=== PATIENT | male | born 1965 | race Caucasian/White ===

== ENCOUNTER 2024-02-09 12:40 | Inpatient (IN) ==
[2024-02-09 13:12] LABS: Hematocrit (blood only) 46.7 % (42.0-52.0); Hemoglobin 15.7 g/dl (14.0-18.0); Mean Corpuscular Hemoglobin 28.9 pg (25.0-34.0); Mean Corpuscular Hgb Conc 33.6 g/dL (32.0-36.0); Mean Corpuscular Volume 85.8 fL (80.0-100.0); Mean Platelet Volume 10.7 fL (9.4-12.4); Platelet Count 206 K/uL (130-400); RDW Standard Deviation 39.8 fL (36.4-46.3); Red Blood Count 5.44 M/uL (4.70-6.10); White Blood Count 14.26 K/ul (4.8-10.8)
[2024-02-09 13:37] LABS: Albumin Globulin Ratio 1.6 (0.9-2); BUN Creatinine Ratio 15.2 (10-20); Bilirubin,Total 0.6 mg/dl (0.2-1.0); Calcium 9.7 mg/dl (8.6-10.3); Creatinine Clr Calc Pharmacy 90.7 ml/min; Est GFR (African American) 105.9 ml/min; Est GFR (Non-African American) 91.4 ml/min; Globulin 3.2 gm/dl (2.5-4.0); Potassium 3.8 mmol/L (3.5-5.1); Total Protein 8.2 gm/dl (6.0-8.3)
[2024-02-09] MEDS: OPTIRAY 320 100ml IV ONE (13:47)
[2024-02-09 13:48] LABS: Basophils # (auto) 0.03 K/uL (0.00-0.20); Basophils % (auto) 0.2 %; Eosinophils # (auto) 0.01 K/uL (0.00-0.50); Eosinophils % (auto) 0.1 %; Immature Granulocytes # (auto) 0.06 K/uL (0.01-0.20); Immature Granulocytes % (auto) 0.4 %; Lymphocytes # (auto) 0.63 K/uL (1.20-3.40); Lymphocytes % (auto) 4.4 %; Monocytes # (auto) 0.59 K/uL (0.11-0.59); Monocytes % (auto) 4.1 %; Neutrophils # (auto) 12.94 K/uL (1.40-6.50); Neutrophils % (auto) 90.8 %
--- NOTE | 2024-02-09 14:35 | CT Scan Report ---
ABDOMEN AND PELVIS CT WITH IV CONTRAST CT DOSE: 1421.24 mGy.cm HISTORY: Lower abd pain; vomiting TECHNIQUE: Multiaxial CT images of the abdomen and pelvis were performed following the use of intrave nous contrast. A dose lowering technique was utilized adhering to the principles of ALARA. COMPARISON STUDY: None. FINDINGS: The lung bases are clear. No pneumoperitoneum. No pneumatosis. No acute fractures identifie d. There is a 1.9 cm cyst within the left hepatic lobe. A few additional subcentimeter hypodense lesi ons are technically too small to characterize but favor cysts. The main portal vein is patent. The ga llbladder, pancreas, spleen, and adrenal glands are unremarkable. The kidneys enhance normally. Bilat eral peripelvic renal cysts are noted. No hydronephrosis. Fat stranding within the central mesentery suggestive of a mild mesenteric panniculitis. This is of doubtful clinical significance. No retroperi toneal lymphadenopathy. Normal caliber abdominal aorta. No pelvic lymphadenopathy or pelvic free flui d. Normal bladder. Fluid-filled nondistended colon. No evidence for a bowel obstruction. Distended an d fluid-filled appendix measuring up to 12 mm with mild periappendiceal fat stranding. This is consis tent with acute appendicitis. No perforation or abscess identified at this time. Mild thickening with in the adjacent small bowel is likely reactive. IMPRESSION: 1. Above findings consistent with acute appendicitis. No perforation or abscess. Surgical consultatio n recommended. 2. Fluid-filled nondilated colon. This suggests a diarrheal illness. ACT 112: Negative or not required by law. Electronically signed by: Tay Rojas M.D. 02/09/2024 2:32 PM
[2024-02-09] MEDS: PIPERACILLIN/TAZOBACTAM 4.5 GM/100 ML BAG IV ONE (14:52)
--- NOTE | 2024-02-09 14:58 | Emergency Department Note ---
Impression & Plan Acute appendicitis ED Provider Note NAME: MARIANO DIAZ AGE: 58 SEX: M : 1965 ARRIVES VIA: Walk-In INFORMANT: Patient, ED PROVIDER(S): Venkat Tian MD CHIEF COMPLAINT: Abdominal pain HPI: This is a 58-year-old male present for abdominal pain. Patient notes that over the weekend he was drinking heavy with the boys. He notes that he drank likely half a bottle of liquor. He then began having abdominal pain the day following. He then ate 2 big bowls of chili which worsening pain. His pain is more epigastric. He also notes right lower quadrant pain as well. He notes that he has tried Gas-X, Pepcid and Mylanta for symptoms without relief. He has no continued symptoms with dry heaving this morning. No previous history of abdominal surgeries. ROS: See above HPI for pertinent positives & negatives. A total of 10 systems reviewed and were otherwise negative. PAST MEDICAL HISTORY: See Below PAST SURGICAL HISTORY: See Below FAMILY HISTORY: See Below SOCIAL HISTORY: See Below HOME MEDICATIONS: See Below ALLERGIES: See Below VITALS: See Below PHYSICAL EXAMINATION: General: resting comfortably in no acute distress Head: Normocephalic and atraumatic Eyes: Normal inspection, extraocular muscles intact Ear, nose, throat: Normal external exam Neck: Normal range of motion Respiratory: lungs clear to auscultation bilaterally Cardiovascular: Regular rate/rhythm, no murmur GI: Right lower quadrant tenderness to palpation Extremities: nontender, moves all extremities Neuro: The patient awake and alert, appropriately conversive, no focal deficits, symmetric faces Skin: Warm, dry, and intact MEDICAL DECISION MAKING: This is a 58-year-old male presented for abdominal pain. With patient history of drinking and chili, consider gastritis, peptic ulcer disease, pancreatitis. Also consider diverticulitis versus appendicitis. -Bloodwork is reviewed showing leukocytosis, 14 no anemia, electrolyte or creatinine abnormality -CT imaging does confirm appendicitis in the right lower quadrant. In addition who shows few diarrheal illness. -Will give IV antibiotics, Zosyn for this appendicitis -Discussed with SRIKANTH Chaudhry for surgery who will see the patient in consultation. -Patient admitted directly to surgical service for IV antibiotics. At this time patient does not want surgery. Differential diagnosis: Diverticulitis, gastritis, peptic ulcer disease, pancreatitis, appendicitis ER treatment provided: See below Diagnostics interpreted by me: ECG: ECG independently interpreted by me with sinus rhythm with occasional PVCs at a rate of 79, with incomplete bundle branch block, no ST segment elevation concerning for STEMI, normal TN/QTc Cardiac Monitoring: An order was placed for continuous cardiac monitoring. The monitor shows a rate of 83 with sinus rhythm. Laboratory studies: As stated above and show below. Imaging studies: See below. 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 Vitor Seg[place] [facility] [place] of tonsillectomy (12/02/21) TORS Radical Tonsillectomy + Right Neck Dissection + Partial Glossectomy + Ligation of Right Superior Thyroid, Lingual, Faical, and Ascending Pharyngeal Arteries + Pharyngoplasty Dr. Vitor Segundo [place] [facility] [place] Family History Father Esophageal cancer, Onset Age: 60 Chemotherapy Mother No problems noted. Brother No problems noted. Sister No problems noted. Son No problems noted. Daughter No problems noted. Daughter No problems noted. 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 How many Children do You have: 3 Feels Safe at Home: Yes Safety Concerns: Feels Safe At This Time Diet Comment: Keto Diet with intermittent fasting caffeine: Yes during the past year weight has: remained stable Dental Care, Regularly: Yes Assistive Devices: Glasses Allergies Allergies Allergy/AdvReac Type Severity Reaction Status Date / Time No Known Drug Allergies Allergy 0 Verified 02/09/24 16:37 Home Meds Home Medications Medication Instructions Recorded Confirmed aluminum hydrox-magnesium carb 95 15 ml PO PCHS PRN Indigestion 02/09/24 02/09/24 mg-358 mg/15 mL oral suspension (Gaviscon) bisacodyl 10 mg rectal suppository 10 mg TN DAILY PRN Constipation 02/09/24 02/09/24 (Dulcolax (bisacodyl)) famotidine 20 mg tablet (Pepcid AC) 20 mg PO .TODAY 02/09/24 02/09/24 simethicone 80 mg chewable tablet 2 mg PO BID PRN .gas/bloating 02/09/24 02/09/24 sodium phosphates 19 gram-7 118 ml TN DAILY PRN Constipation 02/09/24 02/09/24 gram/118 mL enema (Fleet Enema) Results & Data (ED) Vital Signs Vital Signs - 24 hr 02/09/24 12:42 02/09/24 14:12 02/09/24 15:09 Temperature 36.6 C Temperature Source Temporal Artery Scan Pulse Rate 68 86 Pulse Rate [Apical] 83 Pulse Rhythm Pulse Rhythm [Apical] Irregular Pulse Strength [Apical] Normal Respiratory Rate 20 18 Respiratory Effort / Characteristics Non-Labored Spontaneous Non-Labored Spontaneous Respiratory Depth Normal Normal Respiratory Pattern Regular Regular Blood Pressure 179/94 H Blood Pressure [Left Arm] 161/95 H Blood Pressure Mean 122 Blood Pressure Mean [Left Arm] 117 Blood Pressure Position [Left Arm] Sitting Pulse Oximetry 97 96 Oxygen Delivery Method Room Air Room Air Sepsis Recent Fever Within 48 Hours No Sepsis New/Unexplained Change in Mental Status No Sepsis Action Taken by Nursing No Action Required 02/09/24 15:20 02/09/24 17:13 02/09/24 18:12 Temperature Temperature Source Pulse Rate 82 80 Pulse Rate [Apical] 81 Pulse Rhythm Irregular Pulse Rhythm [Apical] Irregular Pulse Strength [Apical] Normal Respiratory Rate 16 18 Respiratory Effort / Characteristics Non-Labored Spontaneous Respiratory Depth Normal Respiratory Pattern Regular Blood Pressure Blood Pressure [Left Arm] 130/84 Blood Pressure Mean Blood Pressure Mean [Left Arm] 99 Blood Pressure Position [Left Arm] Sitting Pulse Oximetry 95 98 Oxygen Delivery Method Room Air Room Air Sepsis Recent Fever Within 48 Hours Sepsis New/Unexplained Change in Mental Status Sepsis Action Taken by Nursing 02/09/24 19:31 02/09/24 21:01 Temperature Temperature Source Pulse Rate 83 Pulse Rate [Apical] 73 Pulse Rhythm Pulse Rhythm [Apical] Pulse Strength [Apical] Respiratory Rate 16 16 Respiratory Effort / Characteristics Respiratory Depth Respiratory Pattern Blood Pressure 134/75 Blood Pressure [Left Arm] 150/86 H Blood Pressure Mean Blood Pressure Mean [Left Arm] 107 Blood Pressure Position [Left Arm] Pulse Oximetry 93 95 Oxygen Delivery Method Room Air Sepsis Recent Fever Within 48 Hours Sepsis New/Unexplained Change in Mental Status Sepsis Action Taken by Nursing Laboratory Data 02/09/24 12:59 02/09/24 12:59 Lab Results 02/09/24 02/09/24 Range/Units 12:59 20:43 WBC 14.26 H (4.8-10.8) K/ul RBC 5.44 (4.70-6.10) M/uL Hgb 15.7 (14.0-18.0) g/dl Hct 46.7 (42.0-52.0) % MCV 85.8 (80.0-100.0) fL MCH 28.9 (25.0-34.0) pg MCHC 33.6 (32.0-36.0) g/dL RDW Std Deviation 39.8 (36.4-46.3) fL RDW Coeff of Aleksandar 13.0 (11.5-14.5) % Plt Count 206 (130-400) K/uL MPV 10.7 (9.4-12.4) fL Immature Gran % (Auto) 0.4 % Neut % (Auto) 90.8 % Lymph % (Auto) 4.4 % [place] % (Auto) 4.1 % Eos % (Auto) 0.1 % Baso % (Auto) 0.2 % Neut # (Auto) 12.94 H (1.40-6.50) K/uL Lymph # (Auto) 0.63 L (1.20-3.40) K/uL [place] # (Auto) 0.59 (0.11-0.59) K/uL Eos # (Auto) 0.01 (0.00-0.50) K/uL Baso # (Auto) 0.03 (0.00-0.20) K/uL Immature Gran # (Auto) 0.06 (0.01-0.20) K/uL Sodium 137 (136-145) mmol/L Potassium 3.8 (3.5-5.1) mmol/L Chloride 98 (98-107) mmol/L Carbon Dioxide 30 (21-32) mmol/L Anion Gap 9 (3-11) BUN 14 (6-23) mg/dl Creatinine 0.92 (0.6-1.4) mg/dl Est Cr Clr Drug Dosing 90.7 ml/min Est GFR ( Amer) 105.9 ml/min Est GFR (Non-Af Amer) 91.4 ml/min BUN/Creatinine Ratio 15.2 (10-20) Glucose 196 H (70-99(Fasting)) mg/dl Calcium 9.7 (8.6-10.3) mg/dl Total Bilirubin 0.6 (0.2-1.0) mg/dl AST 21 (13-39) U/L ALT 30 (7-52) U/L Alkaline Phosphatase 56 (34-104) U/L Total Protein 8.2 (6.0-8.3) gm/dl Albumin 5.0 (3.4-5.0) gm/dl Globulin 3.2 (2.5-4.0) gm/dl Albumin/Globulin Ratio 1.6 (0.9-2) Lipase 12 (11-82) U/L Urine Color Yellow Urine Appearance Clear (Clear) Urine pH 7.5 (4.5-7.5) Ur Specific [place] 1.025 (1.000-1.030) Urine Protein Negative (Negative) Urine Glucose (UA) Negative (Negative) Urine Ketones Negative (Negative) Urine Blood Negative (Negative) Urine Nitrite Negative (Negative) Urine Bilirubin Negative (Negative) Urine Urobilinogen Negative (Negative) Ur Leukocyte Esterase Negative (Negative) Administered Medications Discontinued Medications Piperacillin Sod/Tazobactam Sod (Zosyn) 4.5 gm in 100 mls @ 200 mls/hr IV NOW ONE Stop: 02/09/24 15:12 Last Infusion: 02/09/24 15:23 Dose: Infused Documented By: Admin: 02/09/24 14:52 Dose: 200 mls/hr Documented By: AARON Ioversol (Optiray 320 100ml) 93 ml IV ONCE ONE Stop: 02/09/24 13:47 Last Admin: 02/09/24 13:47 Dose: 93 ml Documented By: EDK Imaging Data Radiologist's Impression: Abdomen/Pelvis CT 02/09/24 13:[address] WITH IV CONTRAST CT DOSE: 1421.24 mGy.cm HISTORY: Lower abd pain; vomiting TECHNIQUE: Multiaxial CT images of the abdomen and pelvis were performed following the use of intravenous contrast. A dose lowering technique was utilized adhering to the principles of ALARA. COMPARISON STUDY: None. FINDINGS: The lung bases are clear. No pneumoperitoneum. No pneumatosis. No acute fractures identified. There is a 1.9 cm cyst within the left hepatic lobe. A few additional subcentimeter hypodense lesions are technically too small to characterize but favor cysts. The main portal vein is patent. The gallbladder, pancreas, spleen, and adrenal glands are unremarkable. The kidneys enhance normally. Bilateral peripelvic renal cysts are noted. No hydronephrosis. Fat stranding within the central mesentery suggestive of a mild mesenteric panniculitis. This is of doubtful clinical significance. No retroperitoneal lymphadenopathy. Normal caliber abdominal aorta. No pelvic lymphadenopathy or pelvic free fluid. Normal bladder. Fluid-filled nondistended colon. No evidence for a bowel obstruction. Distended and fluid-filled appendix measuring up to 12 mm with mild periappendiceal fat stranding. This is consistent with acute appendicitis. No perforation or abscess identified at this time. Mild thickening within the adjacent small bowel is likely reactive. IMPRESSION: 1. Above findings consistent with acute appendicitis. No perforation or abscess. Surgical consultation recommended. 2. Fluid-filled nondilated colon. This suggests a diarrheal illness. ACT 112: Negative or not required by law. Electronically signed by: Tay Rojas M.D. 02/09/2024 2:32 PM Discharge Plan Visit Data Chief Complaint: Abdominal Pain Stated Complaint: ABD PAIN, LOWER ABD ED Provider: Venkat Tian Discharge Problem: Acute appendicitis Patient Disposition: Admitted As Inpatient Discharge Instructions Interventions: ED Discharge Assessment Last Done: 02/09/24 21:01 Forms Stand Alone Forms: [employer] Prescriptions Prescriptions: No Action Gaviscon 95-358 mg/15 mL Suspension 15 ml PO PCHS PRN (Reason: Indigestion) famotidine [Pepcid AC] 20 mg Tablet 20 mg PO .TODAY bisacodyl [Dulcolax (bisacodyl)] 10 mg Suppository 10 mg TN DAILY PRN (Reason: Constipation) Fleet Enema 19-7 gram/118 mL Enema 118 ml TN DAILY PRN (Reason: Constipation) simethicone [Gas-X] 80 mg Tablet,Chewable 2 mg PO BID PRN (Reason: .gas/bloating) Referrals Referrals: Dennis Thomson DO [Primary Care Provider] -
[2024-02-09] MEDS ORDERED: DEXAMETHASONE SOD INJ 4 MG/ML VIAL ONE (15:15)
[2024-02-09] MEDS ORDERED: fentaNYL citrate PF 100 MCG/2 ML VIAL ONE (15:15)
[2024-02-09] MEDS ORDERED: ONDANSETRON INJ 2 MG/ML 2 ML VIAL ONE (15:15)
[2024-02-09] MEDS ORDERED: ROCURONIUM BROMIDE 10 MG/ML 5 ML VIAL IV ONE (15:15)
[2024-02-09] MEDS ORDERED: MIDAZOLAM HCL 1 MG/ML 2ML VIAL ONE (15:15)
[2024-02-09] MEDS ORDERED: LIDOCAINE 2% 2 ML VIAL/AMP(20MG/ML) INFIL ONE (15:15)
[2024-02-09] MEDS ORDERED: PROPOFOL IV EMULSION 10 MG/ML 20 ML VIAL IV ONE (15:15)
--- NOTE | 2024-02-09 15:26 | Anesthesiology Consultation ---
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 Brother No problems noted. Sister No problems noted. Son No problems noted. Daughter No problems noted. Daughter No problems noted. Past Surgical History Surgical History Status post fine needle aspiration (11/10/21) History of vasectomy History of laryngoscopy (11/23/21) Direct Laryngoscopy with Biopsy Dr. Vitor Segundo at [facility] [place] History of tonsillectomy (12/02/21) TORS Radical Tonsillectomy + Right Neck Dissection + Partial Glossectomy + Ligation of Right Superior Thyroid, Lingual, Faical, and Ascending Pharyngeal Arteries + Pharyngoplasty Dr. Vitor Segundo at [facility] [place] Social History Smoking Status: Current some day smoker Do You Dip or Chew Tobacco: No Hx Alcohol Use: Yes Hx Substance Use: No Physical Exam Vital Signs Last Vital Signs Temp 36.6 C 02/09/24 12:42 Pulse 82 02/09/24 15:20 Resp 16 02/09/24 15:20 BP 161/95 H 02/09/24 15:09 Pulse Ox 95 02/09/24 15:20 O2 Del Method Room Air 02/09/24 15:20 Testing Laboratory Results 02/09/24 12:59 02/09/24 12:59 Electrocardiogram pending
--- NOTE | 2024-02-09 16:02 | History & Physical Report ---
<Statement entered by Kian Keating MD - 02/09/24 19:20> Patient seen and agree. I recommended lap appendectomy but patient request trial on abx. Will observe and serial exams. Date of Service February 09, 2024 Assessment & Plan (1) Acute appendicitis: Plan: 58 year-old male with less than 1 day history of abdominal pain with associated chills. Leukocytosis of 14k and CT scan of abdomen and pelvis showing uncomplicated appendicitis. Discussed imaging and lab findings with patient. He would like to proceed with nonoperative/conservative measures first with IV antibiotics. Dr. Keating also evaluated patient in emergency department and discussed options. Discussed trial of IV antibiotics for a few days with transition to oral antibiotics and if no improvement by tomorrow or if there is any increase in abdominal pain, leukocytosis, or any fevers would recommend laparoscopic appendectomy. Will admit to med/surg, IV fluids, IV Zosyn, IV and po pain management as needed, IV zofran as needed. Dr. Keating has seen and examined pt, agrees with above. History of Present Illness Chief Complaint: Abdominal pain Primary Care Provider: DO Cameron Stallings is a 58 year-old male who presented to ED with complaint of abdominal pain that began last evening. Pain was mostly generalized in upper abdomen but also present in right lower abdomen. Deport maybe due to constipation and took some Dulcolax and enema but did not relieve pain. No associated fevers but had some chills. No sweats, chest pain, shortness of breath, difficulty breathing, nausea, vomiting, changes in bowel habits, blood in stools, difficulty urinating or blood in urine. No prior abdominal surgeries. 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 No regular medications. ER work-up included labs which showed leukocytosis of 14K, ct scan of abdomen and pelvis with IV Contrast showing dilated fluid filled appendix at 12 mm with periappendiceal stranding consistent with acute appendicitis. no evidence of perforation or abscess. 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 Vitor Segundo at [facility] [place] History of tonsillectomy (12/02/21) TORS Radical Tonsillectomy + Right Neck Dissection + Partial Glossectomy + Ligation of Right Superior Thyroid, Lingual, Faical, and Ascending Pharyngeal Arteries + Pharyngoplasty Dr. Vitor Segundo at [facility] [place] Family History Father Esophageal cancer, Onset Age: 60 Chemotherapy Mother No problems noted. Brother No problems noted. Sister No problems noted. Son No problems noted. Daughter No problems noted. Daughter No problems noted. 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 How many Children do You have: 3 Feels Safe at Home: Yes Diet Comment: Keto Diet with intermittent fasting caffeine: Yes during the past year weight has: remained stable Dental Care, Regularly: Yes Assistive Devices: Glasses Review of Systems Review of Systems: All systems reviewed & are unremarkable except as noted in HPI & below Physical Exam Constitutional: WD/WN, vitals as above + obese, cooperative and comfortable; no acute distress and not ill appearing Neck: Scar of the right neck Respiratory: normal respiratory effort, lungs clear to auscultation Cardiovascular: RRR, no murmur, no edema Heart Sounds: normal S1 and normal S2; no murmur Gastrointestinal (Abdomen): Inspection/Auscultation: abdomen normal to inspection; abdomen not distended Percussion/Palpation: + abdomen tender (RLQ) and abdomen soft; no guarding, abdomen not rigid and abdomen not firm Skin: no rashes, warm and dry Psychiatric: A+Ox3, euthymic affect Results & Data Results & Data Vital Signs (Past 12 Hours) Vital Signs Temp Pulse Pulse Resp BP BP Pulse Ox 02/09/24 15:20 82 16 95 02/09/24 15:09 83 18 161/95 H 96 02/09/24 14:12 86 02/09/24 12:42 36.6 C 68 20 179/94 H 97 O2 Del Method 02/09/24 15:20 Room Air 02/09/24 15:09 Room Air 02/09/24 14:12 02/09/24 12:42 Room Air Laboratory Results 02/09/24 Range/Units 12:59 WBC 14.26 H (4.8-10.8) K/ul RBC 5.44 (4.70-6.10) M/uL Hgb 15.7 (14.0-18.0) g/dl Hct 46.7 (42.0-52.0) % MCV 85.8 (80.0-100.0) fL MCH 28.9 (25.0-34.0) pg MCHC 33.6 (32.0-36.0) g/dL RDW Std Deviation 39.8 (36.4-46.3) fL RDW Coeff of Aleksandar 13.0 (11.5-14.5) % Plt Count 206 (130-400) K/uL MPV 10.7 (9.4-12.4) fL Immature Gran % (Auto) 0.4 % Neut % (Auto) 90.8 % Lymph % (Auto) 4.4 % [place] % (Auto) 4.1 % Eos % (Auto) 0.1 % Baso % (Auto) 0.2 % Neut # (Auto) 12.94 H (1.40-6.50) K/uL Lymph # (Auto) 0.63 L (1.20-3.40) K/uL [place] # (Auto) 0.59 (0.11-0.59) K/uL Eos # (Auto) 0.01 (0.00-0.50) K/uL Baso # (Auto) 0.03 (0.00-0.20) K/uL Immature Gran # (Auto) 0.06 (0.01-0.20) K/uL Sodium 137 (136-145) mmol/L Potassium 3.8 (3.5-5.1) mmol/L Chloride 98 (98-107) mmol/L Carbon Dioxide 30 (21-32) mmol/L Anion Gap 9 (3-11) BUN 14 (6-23) mg/dl Creatinine 0.92 (0.6-1.4) mg/dl Est Cr Clr Drug Dosing 90.7 ml/min Est GFR ( Amer) 105.9 ml/min Est GFR (Non-Af Amer) 91.4 ml/min BUN/Creatinine Ratio 15.2 (10-20) Glucose 196 H (70-99(Fasting)) mg/dl Calcium 9.7 (8.6-10.3) mg/dl Total Bilirubin 0.6 (0.2-1.0) mg/dl AST 21 (13-39) U/L ALT 30 (7-52) U/L Alkaline Phosphatase 56 (34-104) U/L Total Protein 8.2 (6.0-8.3) gm/dl Albumin 5.0 (3.4-5.0) gm/dl Globulin 3.2 (2.5-4.0) gm/dl Albumin/Globulin Ratio 1.6 (0.9-2) Lipase 12 (11-82) U/L Diagnostic Findings ABDOMEN AND PELVIS CT WITH IV CONTRAST CT DOSE: 1421.24 mGy.cm HISTORY: Lower abd pain; vomiting TECHNIQUE: Multiaxial CT images of the abdomen and pelvis were performed following the use of intravenous contrast. A dose lowering technique was utilized adhering to the principles of ALARA. COMPARISON STUDY: None. FINDINGS: The lung bases are clear. No pneumoperitoneum. No pneumatosis. No acute fractures identified. There is a 1.9 cm cyst within the left hepatic lobe. A few additional subcentimeter hypodense lesions are technically too small to characterize but favor cysts. The main portal vein is patent. The gallbladder, pancreas, spleen, and adrenal glands are unremarkable. The kidneys enhance normally. Bilateral peripelvic renal cysts are noted. No hydronephrosis. Fat stranding within the central mesentery suggestive of a mild mesenteric panniculitis. This is of doubtful clinical significance. No retroperitoneal lymphadenopathy. Normal caliber abdominal aorta. No pelvic lymphadenopathy or pelvic free fluid. Normal bladder. Fluid-filled nondistended colon. No evidence for a bowel obstruction. Distended and fluid-filled appendix measuring up to 12 mm with mild periappendiceal fat stranding. This is consistent with acute appendicitis. No perforation or abscess identified at this time. Mild thickening within the adjacent small bowel is likely reactive. IMPRESSION: 1. Above findings consistent with acute appendicitis. No perforation or abscess. Surgical consultation recommended. 2. Fluid-filled nondilated colon. This suggests a diarrheal illness. Code Status & VTE Plan VTE Prophylaxis Plan VTE Prophylaxis will be ordered: Yes
[2024-02-09 21:01] LABS: Appearance Urine Clear (Clear); Bilirubin Urine Negative (Negative); Blood Urine Negative (Negative); Color Urine Yellow; Glucose Urine UA Negative (Negative); Ketones Urine Negative (Negative); Leukocyte Esterase Urine Negative (Negative); Nitrite Urine Negative (Negative); Protein Urine Negative (Negative); Specific Gravity Urine 1.025 (1.000-1.030); Urobilinogen Urine Negative (Negative); pH Urine 7.5 (4.5-7.5)
[2024-02-09] MEDS ORDERED: ONDANSETRON INJ 2 MG/ML 2 ML VIAL IV PRN (21:28)
[2024-02-09] MEDS ORDERED: ACETAMINOPHEN 325 MG TAB PO PRN (21:28)
[2024-02-09] MEDS ORDERED: MoRPHine SULFATE 4 MG/ML 1 ML CARP\\VIAL IV PRN (21:28)
[2024-02-09] MEDS ORDERED: MoRPHine SULFATE 2 MG/ML CARP IV PRN (21:28)
[2024-02-09] MEDS ORDERED: PROMETHAZINE 12.5 MG/50.5 ML BAG IV PRN (21:28)
[2024-02-09] MEDS ORDERED: KETOROLAC 30 MG/ML VIAL IV PRN (21:28)
[2024-02-09] MEDS: SODIUM CHLORIDE 0.9% 1,000 ML IV SCH (21:45)
--- NOTE | 2024-02-09 22:07 | Electrocardiogram Report ---
Test Reason : Blood Pressure : */* mmHG Vent. Rate : 79 BPM Atrial Rate : 78 BPM P-R Int : 148 ms QRS Dur : 96 ms QT Int : 378 ms P-R-T Axes : 55 -51 12 degrees QTcB Int : 433 ms Sinus rhythm with Premature ventricular complexes Incomplete right bundle branch block Left anterior fascicular block Abnormal ECG No previous ECGs available Confirmed by Brian Brown [id number]) on 02/09/2024 10:07:24 PM Referred By: Kian Keating Confirmed By: Brian Brown
[2024-02-09] MEDS: PIPERACILLIN/TAZOBACTAM 4.5 GM/100 ML BAG IV SCH (22:48)
[2024-02-10 07:29] LABS: Basophils # (auto) 0.03 K/uL (0.00-0.20); Basophils % (auto) 0.4 %; Eosinophils # (auto) 0.05 K/uL (0.00-0.50); Eosinophils % (auto) 0.7 %; Hematocrit (blood only) 40.2 % (42.0-52.0); Hemoglobin 14.1 g/dl (14.0-18.0); Immature Granulocytes # (auto) 0.03 K/uL (0.01-0.20); Immature Granulocytes % (auto) 0.4 %; Lymphocytes # (auto) 0.97 K/uL (1.20-3.40); Lymphocytes % (auto) 12.8 %; Mean Corpuscular Hemoglobin 29.7 pg (25.0-34.0); Mean Corpuscular Hgb Conc 35.1 g/dL (32.0-36.0); Mean Corpuscular Volume 84.8 fL (80.0-100.0); Mean Platelet Volume 11.2 fL (9.4-12.4); Monocytes # (auto) 0.69 K/uL (0.11-0.59); Monocytes % (auto) 9.1 %; Neutrophils # (auto) 5.82 K/uL (1.40-6.50); Neutrophils % (auto) 76.6 %; Platelet Count 177 K/uL (130-400); RDW Standard Deviation 40.3 fL (36.4-46.3); Red Blood Count 4.74 M/uL (4.70-6.10); White Blood Count 7.59 K/ul (4.8-10.8)
[2024-02-10 08:00] LABS: BUN Creatinine Ratio 13.2 (10-20); Calcium 8.4 mg/dl (8.6-10.3); Creatinine Clr Calc Pharmacy 91.2 ml/min; Est GFR (African American) 107.3 ml/min; Est GFR (Non-African American) 92.6 ml/min; Potassium 3.7 mmol/L (3.5-5.1)
--- NOTE | 2024-02-10 09:04 | Surgery Progress Note ---
Date of Service February 10, 2024 Assessment & Plan (1) Acute appendicitis: Plan: responding to IV abx begin clears WBC nL ambulate Admission and Anticipated Discharge Date Admission Date: February 09, 2024 Subjective pain much improved afebrile vitals good Review of Systems Constitutional: no fever and no chills Respiratory: no cough and no dyspnea Cardiovascular: no chest pain Gastrointestinal: + abdominal pain (mild); no nausea and n o vomiting Genitourinary: no dysuria Neurologic: no localized weakness Psychiatric: no behavioral changes Physical Exam Constitutional: WD/WN, vitals as above Respiratory: normal respiratory effort, lungs clear to auscultation Cardiovascular: RRR, no murmur, no edema Gastrointestinal (Abdomen): Inspection/Auscultation: abdomen normal to inspection and normal bowel sounds; abdomen not distended Percussion/Palpation: + abdomen tender and abdomen soft; no guarding and abdomen not rigid Musculoskeletal: Head/Neck/Chest: normocephalic and head atraumatic Skin: no rashes, warm and dry Results & Data Vital Signs (Past 12 Hours) Vital Signs Temp Pulse Resp BP Pulse Ox O2 Del Method 02/10/24 07:21 36.9 C 62 18 116/78 97 Room Air
[2024-02-10] MEDS: ZOLPIDEM TARTRATE 5 MG TAB PO PRN (21:33)
--- NOTE | 2024-02-11 09:46 | Surgery Progress Note ---
Date of Service February 11, 2024 Assessment & Plan (1) Acute appendicitis: Plan: responding well to IV abx regular diet recheck CBC con't IV abx possibly home soon Admission and Anticipated Discharge Date Admission Date: February 09, 2024 Subjective minimal pain afebrile taking po well Review of Systems Constitutional: no fever and no chills Respiratory: no cough and no dyspnea Cardiovascular: no chest pain Gastrointestinal: + abdominal pain; no nausea, no vomiting and no change in bowel habits Genitourinary: no dysuria Musculoskeletal: no back pain Integumentary: no problem reported Neurologic: no localized weakness and no generalized weakness Psychiatric: no behavioral changes Physical Exam Constitutional: WD/WN, vitals as above Eyes: PERRL, conjunctivae normal, anicteric sclerae Respiratory: normal respiratory effort, lungs clear to auscultation Cardiovascular: RRR, no murmur, no edema Gastrointestinal (Abdomen): Inspection/Auscultation: abdomen normal to inspection, + abdomen distended and normal bowel sounds Percussion/Palpation: + abdomen tender (minimal) and abdomen soft; no guarding and abdomen not rigid Musculoskeletal: Head/Neck/Chest: normocephalic and head atraumatic Skin: no rashes, warm and dry Results & Data Vital Signs (Past 12 Hours) Vital Signs Temp Pulse Resp BP Pulse Ox O2 Del Method 02/11/24 07:55 36.9 C 62 18 121/79 96 Room Air
[2024-02-12 06:06] LABS: Basophils # (auto) 0.03 K/uL (0.00-0.20); Basophils % (auto) 0.5 %; Eosinophils % (auto) 3.1 %; Hematocrit (blood only) 41.3 % (42.0-52.0); Hemoglobin 13.7 g/dl (14.0-18.0); Immature Granulocytes # (auto) 0.02 K/uL (0.01-0.20); Immature Granulocytes % (auto) 0.3 %; Lymphocytes # (auto) 1.04 K/uL (1.20-3.40); Mean Corpuscular Hemoglobin 29.1 pg (25.0-34.0); Mean Corpuscular Hgb Conc 33.2 g/dL (32.0-36.0); Mean Corpuscular Volume 87.7 fL (80.0-100.0); Mean Platelet Volume 10.6 fL (9.4-12.4); Monocytes # (auto) 0.71 K/uL (0.11-0.59); Monocytes % (auto) 10.9 %; Neutrophils # (auto) 4.51 K/uL (1.40-6.50); Neutrophils % (auto) 69.2 %; Platelet Count 186 K/uL (130-400); RDW Coefficient of Variation 12.5 % (11.5-14.5); RDW Standard Deviation 40.2 fL (36.4-46.3); Red Blood Count 4.71 M/uL (4.70-6.10); White Blood Count 6.51 K/ul (4.8-10.8)
[2024-02-12] MEDS ORDERED: Nursing to Pharmacy Communication SCH (06:15)
--- NOTE | 2024-02-12 06:59 | Surgery Progress Note ---
Date of Service February 12, 2024 Assessment & Plan (1) Acute appendicitis: Plan: IV abx for one more day responding to conservative therapy likely DC in AM CBC in AM Admission and Anticipated Discharge Date Admission Date: February 09, 2024 Subjective feels well taking po well afebrile Review of Systems Constitutional: no fever and no chills Respiratory: no cough and no dyspnea Cardiovascular: no chest pain Gastrointestinal: + abdominal pain; no nausea, no vomiting and no change in bowel habits Genitourinary: no dysuria Musculoskeletal: no back pain Neurologic: no localized weakness and no generalized weakness Psychiatric: no behavioral changes Physical Exam Constitutional: WD/WN, vitals as above Eyes: PERRL, conjunctivae normal, anicteric sclerae ENMT: external ear and nose normal, oropharynx normal Respiratory: normal respiratory effort, lungs clear to auscultation Cardiovascular: RRR, no murmur, no edema Gastrointestinal (Abdomen): Inspection/Auscultation: abdomen normal to insp ection and normal bowel sounds; abdomen not distended Percussion/Palpation: abdomen soft; abdomen nontender, no guarding and abdomen not rigid Musculoskeletal: Head/Neck/Chest: normocephalic and head atraumatic Skin: no rashes, warm and dry Results & Data Vital Signs (Past 12 Hours) Vital Signs Temp Pulse Resp BP Pulse Ox O2 Del Method 02/11/24 21:37 36.9 C 71 18 129/79 95 Room Air
[2024-02-13 07:45] LABS: Basophils # (auto) 0.04 K/uL (0.00-0.20); Basophils % (auto) 0.6 %; Eosinophils # (auto) 0.23 K/uL (0.00-0.50); Eosinophils % (auto) 3.6 %; Hematocrit (blood only) 46.7 % (42.0-52.0); Hemoglobin 15.4 g/dl (14.0-18.0); Immature Granulocytes # (auto) 0.03 K/uL (0.01-0.20); Immature Granulocytes % (auto) 0.5 %; Lymphocytes # (auto) 1.14 K/uL (1.20-3.40); Mean Corpuscular Hemoglobin 28.7 pg (25.0-34.0); Mean Platelet Volume 10.7 fL (9.4-12.4); Monocytes # (auto) 0.68 K/uL (0.11-0.59); Monocytes % (auto) 10.7 %; Neutrophils # (auto) 4.22 K/uL (1.40-6.50); Neutrophils % (auto) 66.6 %; Platelet Count 247 K/uL (130-400); RDW Coefficient of Variation 12.5 % (11.5-14.5); RDW Standard Deviation 39.8 fL (36.4-46.3); Red Blood Count 5.37 M/uL (4.70-6.10); White Blood Count 6.34 K/ul (4.8-10.8)
[2024-02-13 07:48] VITALS: BP 132/95; RESP 18; TEMP 98.2; O2SAT 94
--- NOTE | 2024-02-13 09:48 | Discharge Summary ---
Date of Service February 13, 2024 Admission HPI Per Admitting Provider Cameron is a 58 year-old male who presented to ED with complaint of abdominal pain that began last evening. Pain was mostly generalized in upper abdomen but also present in right lower abdomen. [place] maybe due to constipation and took some Dulcolax and enema but did not relieve pain. No associated fevers but had some chills. No sweats, chest pain, shortness of breath, difficulty breathing, nausea, vomiting, changes in bowel habits, blood in stools, difficulty urinating or blood in urine. No prior abdominal surgeries. 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 No regular medications. ER work-up included labs which showed leukocytosis of 14K, ct scan of abdomen and pelvis with IV Contrast showing dilated fluid filled appendix at 12 mm with periappendiceal stranding consistent with acute appendicitis. no evidence of perforation or abscess. Principal Diagnosis acute appendicits Discharge Data Allergies Allergy/AdvReac Type Severity Reaction Status Date / Time No Known Drug Allergies Allergy 0 Verified 02/09/24 16:37 Consultations 02/09/24 15:38 ED Decision to Admit Stat Procedures Performed Operation Date: 02/09/24 13:50 <No data on this case meets the specified criteria> Ordered Studies 02/09/24 13:36 CT Abd and Pelvis [CT abd pelvis IV con only] Stat Hospital Course (1) Acute appendicitis: Patient treated conservatively for acute appendicitis with antibiotics. He did not have a fecalith. He remained afebrile and WBCs were normal. He tolerated a diet and had no pain. He will be discharged on po augmentin for 2 weeks. Total Time Total Time Spent Total Time Spent (In Minutes): 15 Discharge Plan Discharge Items Reason For Visit: APPENDICITIS Discharge Diagnosis: appendicitis Activity: Per Instructions section Activity Comment: no strenuous avctivity Lifting: Gradually increase as tolerated Bathing: No limitations Sexual Activity: When tolerated Exercise/Sports: As tolerated Driving/Machine Use: No limitations Non-emergency contact: Surgeon Call non-emergency contact if: your pain is concerning for you, your temperature is above 101.5 and your wound pain has increased Follow-up/Referrals: eDnnis Thomson DO [Primary Care Provider] - Diet: Regular Addtl Attending Provider Instructions: appt dr [facility] 1 week Pending Studies at Discharge: No Stand-Alone Forms: My [facility], Smoking Cessation Medications and DC Order Prescriptions: New amoxicillin-pot clavulanate [Augmentin] 500-125 mg tablet 1 tab PO BID Qty: 30 0RF Continued Gaviscon 95-358 mg/15 mL Suspension 15 ml PO PCHS PRN (Reason: Indigestion) famotidine [Pepcid AC] 20 mg Tablet 20 mg PO .TODAY bisacodyl [Dulcolax (bisacodyl)] 10 mg Suppository 10 mg VA DAILY PRN (Reason: Constipation) Fleet Enema 19-7 gram/118 mL Enema 118 ml VA DAILY PRN (Reason: Constipation) simethicone 80 mg Tablet,Chewable 2 mg PO BID PRN (Reason: .gas/bloating) Admission Data Admit Date/Time: 02/09/24 19:17 Attending Provider: Kian Keating Admit Provider: Kian Keating Primary Care Provider: Dennis Thomson Other Providers: Kian Keating
[2024-02-13 10:22] VITALS: PULSE 73
== END 2024-02-13 10:44 | disposition home or self-care (01) | DRG 446 ==
LOC: ED 12:40 → 3W 19:17